=== PATIENT | female | born 1965 | race African-American/Black ===

== ENCOUNTER 2016-07-25 22:28 | Emergency (ER) | payer MEDICAID ==
[2012-11-01 01:45] VITALS: BMI 40.1
== END 2016-07-25 23:45 | disposition home or self-care (01) ==
LOC: D.ER 22:28
DX: G50.0 Trigeminal neuralgia (principal); I10 Essential (primary) hypertension; J45.909 Unspecified asthma, uncomplicated; E11.9 Type 2 diabetes mellitus without complications; M79.7 Fibromyalgia; K21.9 Gastro-esophageal reflux disease without esophagitis; M32.9 Systemic lupus erythematosus, unspecified; M06.9 Rheumatoid arthritis, unspecified

== ENCOUNTER 2017-04-15 12:47 | Emergency (ER) | payer MEDICAID ==
[2012-11-01 01:45] VITALS: BMI 40.1
== END 2017-04-15 14:25 | disposition home or self-care (01) ==
LOC: D.ER 12:47
DX: B37.2 Candidiasis of skin and nail (principal); M79.605 Pain in left leg; K64.8 Other hemorrhoids; I10 Essential (primary) hypertension; J45.909 Unspecified asthma, uncomplicated; K21.9 Gastro-esophageal reflux disease without esophagitis; M32.9 Systemic lupus erythematosus, unspecified

== ENCOUNTER 2017-04-18 22:13 | Emergency (ER) | payer MEDICAID ==
[2012-11-01 01:45] VITALS: BMI 40.1
[2017-04-19 00:29] LABS: APPEARANCE CLEAR (CLEAR); BILIRUBIN NEGATIVE (NEGATIVE); COLOR YELLOW (YELLOW); GLUCOSE NEGATIVE (NEGATIVE); KETONE NEGATIVE (NEGATIVE); NITRITE NEGATIVE (NEGATIVE); PROTEIN TRACE mg/dL (NEGATIVE); UROBILINOGEN NORMAL (NORMAL)
[2017-04-19 00:30] LABS: BACTERIA FEW /hpf (NONE SEEN); EPITHELIAL CELLS 0-5 /hpf (0-5); RED CELLS - URINE 0-5 /hpf (0-5); WHITE CELLS - URINE 0-5 /hpf (0-5)
[2017-04-19 00:36] LABS: HEMATOCRIT 39.2 % (36.0-48.0); HEMOGLOBIN 11.5 g/dL (12-16); MCHC 29.3 g/dL (31.0-37.0); MCV 66.6 fL (80.0-100.0); MEAN PLATELET VOLUME 9.6 fL (7.4-10.4); NEUTROPHILS 74.5 % (40-80); PLATELET COUNT 375 10x3/uL (130-400); RBC 5.89 10x6/uL (4.00-5.40); WBC 12.4 10x3/uL (4.8-10.8)
[2017-04-19 00:39] LABS: MCH 19.5 pg (26.0-34.0)
[2017-04-19 00:56] LABS: ALBUMIN 3.3 g/dL (3.4-5.0); ANION GAP 11.4 mmol/L (8-16); BILIRUBIN - TOTAL 0.4 mg/dL (0.2-1.3); CALCIUM 9.7 mg/dL (8.5-10.1); CARBON DIOXIDE 27.4 mmol/L (21.0-32.0); POTASSIUM - SERUM 3.8 mmol/L (3.5-5.1); PROTEIN - SERUM 8.3 g/dL (6.4-8.2)
== END 2017-04-19 04:06 | disposition home or self-care (01) ==
LOC: D.ER 22:13
PROVIDERS: Emergency Medicine
DX: R10.9 Unspecified abdominal pain (principal); E11.9 Type 2 diabetes mellitus without complications; K21.9 Gastro-esophageal reflux disease without esophagitis; M32.9 Systemic lupus erythematosus, unspecified; M06.9 Rheumatoid arthritis, unspecified

== ENCOUNTER → 2017-12-19 10:44 | Outpatient (CLI) | payer MEDICAID ==
[2012-11-01 01:45] VITALS: BMI 40.1
== END | disposition home or self-care (01) ==
LOC: D.NM 10:44
DX: I20.0 Unstable angina (principal)

== ENCOUNTER 2018-01-28 21:15 | Emergency (ER) | payer MEDICAID ==
[~2018-01-28] VITALS: Ht 160 cm; Wt 100.2 kg
[2018-01-28 21:32] VITALS: BP 174/83; Ht 160 cm; Wt 100.2 kg
== END 2018-01-28 23:53 | disposition left against medical advice (07) ==
LOC: D.ER 21:15
DX: H53.19 Other subjective visual disturbances (principal)

== ENCOUNTER 2018-07-10 08:25 | Emergency (ER) | payer MEDICAID ==
[~2018-07-10] VITALS: Ht 160 cm; Wt 96.8 kg
[2018-07-10 08:30] VITALS: Ht 160 cm; Wt 96.8 kg
[2018-07-10 08:53] LABS: HEMATOCRIT 34.4 % (36.0-48.0); HEMOGLOBIN 10.8 g/dL (12-16); MCH 20.9 pg (26.0-34.0); MCHC 31.4 g/dL (31.0-37.0); MCV 66.5 fL (80.0-100.0); MEAN PLATELET VOLUME 9.8 fL (7.4-10.4); RBC 5.17 10x6/uL (4.00-5.40); RDW 17.9 % (11.5-14.5); WBC 6.6 10x3/uL (4.8-10.8)
[2018-07-10 08:58] LABS: PLATELET COUNT 238 10x3/uL (130-400)
[2018-07-10 09:08] LABS: ALBUMIN 2.9 g/dL (3.4-5.0); ALKALINE PHOSPHATASE 85 U/L (46-116); ALT (SGPT) 13 U/L (10-68); BILIRUBIN - TOTAL 0.48 mg/dL (0.2-1.3); CALC OSMOLALITY 276 mosm/kg (275-300); CALCIUM 8.7 mg/dL (8.5-10.1); CHLORIDE - SERUM 105 mmol/L (98-107); CREATININE - SERUM 1.3 mg/dL (0.6-1.3); GLUCOSE 84 mg/dL (74-106); POTASSIUM - SERUM 3.4 mmol/L (3.5-5.1); PROTEIN - SERUM 7.9 g/dL (6.4-8.2); SODIUM 139 mmol/L (136-145); UREA NITROGEN 13 mg/dL (7-18); eGFR NON AFRICAN AMERICAN 46 mL/min (90-120)
[2018-07-10 09:20] LABS: CKMB 0.1 U/L (0.0-3.6); CREATINE KINASE 80 UL (21-215); PRO BNP 122 pg/mL (0-125); TROPONIN-I < 0.017 ng/mL (0.000-0.060)
[2018-07-10 09:39] LABS: LYMPHOCYTES 16 % (15-50); MONOCYTES 7 % (2-11); NEUTROPHILS 73 % (40-80); PLATELET ESTIMATE NORMAL
[2018-07-10 10:25] LABS: APPEARANCE HAZY (CLEAR); BILIRUBIN NEGATIVE (NEGATIVE); COLOR YELLOW (YELLOW); GLUCOSE NEGATIVE (NEGATIVE); KETONE NEGATIVE (NEGATIVE); NITRITE NEGATIVE (NEGATIVE); PROTEIN TRACE mg/dL (NEGATIVE); UROBILINOGEN NORMAL (NORMAL)
[2018-07-10 10:26] LABS: BACTERIA MANY /hpf (NONE SEEN); EPITHELIAL CELLS 0-5 /hpf (0-5); MUCUS <1+ /lpf (NONE SEEN); RED CELLS - URINE RARE /hpf (0-5); WHITE CELLS - URINE 0-5 /hpf (0-5)
[2018-07-10] MEDS ORDERED: MEDROL DOSE PACK4 MG PO (10:38)
[2018-07-10 11:22] VITALS: BP 154/72
== END 2018-07-10 11:22 | disposition home or self-care (01) ==
LOC: D.ER 08:25
PROVIDERS: Emergency Medicine
DX: M32.9 Systemic lupus erythematosus, unspecified (principal); M54.16 Radiculopathy, lumbar region; Z86.73 Personal history of transient ischemic attack (TIA), and cerebral infarction without residual deficits; E11.9 Type 2 diabetes mellitus without complications; I10 Essential (primary) hypertension; J44.9 Chronic obstructive pulmonary disease, unspecified; Z85.520 Personal history of malignant carcinoid tumor of kidney

== ENCOUNTER 2019-03-07 20:00 | Emergency (ER) | payer MEDICAID ==
[~2019-03-07] VITALS: Ht 160 cm; Wt 101.8 kg
[~2019-03-07 20:00] MED LIST: MEDROL DOSE PACK4 MG PO
[2019-03-07 20:30] VITALS: BP 172/79; Ht 160 cm; Wt 101.8 kg
[2019-03-07] MEDS ORDERED: BENICAR40 MG PO (20:34)
[2019-03-07] MEDS ORDERED: KLONOPIN1 MG PO (20:34)
[2019-03-07] MEDS ORDERED: CATAPRES0.1 MG PO (20:35)
[2019-03-07] MEDS ORDERED: NEURONTIN600 MG PO (20:35)
[2019-03-07] MEDS ORDERED: LANOXIN IN0.5 MG/2 M IV (20:35)
[2019-03-07] MEDS ORDERED: HYDROCHLOROTHIA25 MG PO (20:35)
[2019-03-07] MEDS ORDERED: NEXIUM20 MG PO (20:35)
[2019-03-07] MEDS ORDERED: FLUTICASONE PRO16 GM NASAL (20:35)
[2019-03-07] MEDS ORDERED: XARELTO15 MG PO (20:36)
[2019-03-07] MEDS ORDERED: SORINE80 MG PO (20:36)
[2019-03-07] MEDS ORDERED: ED-SPAZ0.125 MG PO (20:36)
[2019-03-07 22:26] LABS: BASOPHILS 0.2 % (0-2); EOSINOPHILS 1.6 % (0-7); HEMATOCRIT 36.4 % (36.0-48.0); HEMOGLOBIN 11.8 g/dL (12-16); IMMATURE GRANULOCYTES 0.4 % (0-5); LYMPHOCYTES 23.5 % (15-50); MCH 21.8 pg (26.0-34.0); MCHC 32.4 g/dL (31.0-37.0); MCV 67.2 fL (80.0-100.0); MEAN PLATELET VOLUME 9.6 fL (7.4-10.4); MONOCYTES 6.4 % (2-11); NEUTROPHILS 67.9 % (40-80); RBC 5.42 10x6/uL (4.00-5.40); RDW 18.5 % (11.5-14.5)
[2019-03-07 22:29] LABS: INR 0.97 (0.85-1.17); PROTIME 12.4 SECONDS (11.6-15.0)
[2019-03-07 22:34] LABS: PLATELET COUNT 367 10x3/uL (130-400)
[2019-03-07 22:35] LABS: HCG SERUM NEGATIVE (NEGATIVE)
[2019-03-07 22:36] LABS: ALBUMIN 3.4 g/dL (3.4-5.0); ANION GAP 8.9 mmol/L (8-16); BILIRUBIN - TOTAL 0.38 mg/dL (0.2-1.3); CALCIUM 9.6 mg/dL (8.5-10.1); CARBON DIOXIDE 30.7 mmol/L (21.0-32.0); CREATININE - SERUM 0.9 mg/dL (0.6-1.3); POTASSIUM - SERUM 3.6 mmol/L (3.5-5.1); PROTEIN - SERUM 8.6 g/dL (6.4-8.2)
[2019-03-07 22:41] LABS: APPEARANCE CLEAR (CLEAR); BILIRUBIN NEGATIVE (NEGATIVE); COLOR YELLOW (YELLOW); GLUCOSE NEGATIVE (NEGATIVE); KETONE NEGATIVE (NEGATIVE); NITRITE POSITIVE (NEGATIVE); PROTEIN NEGATIVE (NEGATIVE); UROBILINOGEN NORMAL (NORMAL)
[2019-03-07 22:43] LABS: BACTERIA MANY /hpf (NEGATIVE); EPITHELIAL CELLS 0-5 /hpf (0-5); RED CELLS - URINE OCC /hpf (0-5)
[2019-03-08] MEDS ORDERED: ZANAFLEX4 MG PO (00:16)
[2019-03-08] MEDS ORDERED: TALWIN NX1 TAB PO (00:16)
[2019-03-09] MEDS ORDERED: MACROBID100 MG PO (21:40)
== END 2019-03-08 01:12 | disposition home or self-care (01) ==
LOC: D.ER 20:00
PROVIDERS: Family Medicine
DX: S16.1XXA Strain of muscle, fascia and tendon at neck level, initial encounter (principal); V49.49XA Driver injured in collision with other motor vehicles in traffic accident, initial encounter; E11.9 Type 2 diabetes mellitus without complications; I10 Essential (primary) hypertension; J44.9 Chronic obstructive pulmonary disease, unspecified; K21.9 Gastro-esophageal reflux disease without esophagitis

== ENCOUNTER 2019-03-09 20:34 | Emergency (ER) | payer MEDICAID ==
[~2019-03-09] VITALS: Ht 160 cm; Wt 102.3 kg
[~2019-03-09 20:34] MED LIST changes: +BENICAR40 MG PO; +CATAPRES0.1 MG PO; +ED-SPAZ0.125 MG PO; +FLUTICASONE PRO16 GM NASAL; +HYDROCHLOROTHIA25 MG PO; +KLONOPIN1 MG PO; +LANOXIN IN0.5 MG/2 M IV; +NEURONTIN600 MG PO; +NEXIUM20 MG PO; +SORINE80 MG PO; +TALWIN NX1 TAB PO; +XARELTO15 MG PO; +ZANAFLEX4 MG PO
[2019-03-09 20:51] VITALS: Ht 160 cm; Wt 102.3 kg
[2019-03-09] MEDS ORDERED: MACROBID100 MG PO (21:40)
[2019-03-09 22:16] VITALS: BP 153/87
== END 2019-03-09 22:17 | disposition home or self-care (01) ==
LOC: D.ER 20:34
DX: S16.1XXA Strain of muscle, fascia and tendon at neck level, initial encounter (principal); S13.4XXA Sprain of ligaments of cervical spine, initial encounter; V89.2XXA Person injured in unspecified motor-vehicle accident, traffic, initial encounter

== ENCOUNTER 2019-03-12 12:06 | Emergency (ER) | payer MEDICAID ==
[~2019-03-12] VITALS: Ht 160 cm; Wt 97.3 kg
[~2019-03-12 12:06] MED LIST changes: +MACROBID100 MG PO
[2019-03-12 12:52] VITALS: Ht 160 cm; Wt 97.3 kg
[2019-03-12 15:45] VITALS: BP 138/77
== END 2019-03-12 15:45 | disposition home or self-care (01) ==
LOC: D.ER 12:06
DX: S29.012A Strain of muscle and tendon of back wall of thorax, initial encounter (principal); V89.2XXA Person injured in unspecified motor-vehicle accident, traffic, initial encounter; I10 Essential (primary) hypertension; M32.9 Systemic lupus erythematosus, unspecified

== ENCOUNTER → 2019-03-13 13:33 | Outpatient (CLI) | payer MEDICAID ==
[2019-03-12 12:52] VITALS: BMI 37.9
== END | disposition home or self-care (01) ==
LOC: D.HCCECHO 13:00
PROVIDERS: ATTEND Internal Medicine Cardiovascular Disease
DX: I10 Essential (primary) hypertension (principal)

== ENCOUNTER 2019-05-04 13:26 | Emergency (ER) | payer MEDICAID ==
[~2019-05-04] VITALS: Ht 160 cm; Wt 104.5 kg
[2019-05-04 13:34] VITALS: Ht 160 cm; Wt 104.5 kg
[2019-05-04 15:55] LABS: BASOPHILS 0.2 % (0-2); EOSINOPHILS 1.1 % (0-7); HEMATOCRIT 36.9 % (36.0-48.0); HEMOGLOBIN 11.6 g/dL (12-16); IMMATURE GRANULOCYTES 0.3 % (0-5); LYMPHOCYTES 20.9 % (15-50); MCH 21.7 pg (26.0-34.0); MCHC 31.4 g/dL (31.0-37.0); MEAN PLATELET VOLUME 9.4 fL (7.4-10.4); MONOCYTES 5.1 % (2-11); NEUTROPHILS 72.4 % (40-80); PLATELET COUNT 317 10x3/uL (130-400); RBC 5.35 10x6/uL (4.00-5.40); RDW 17.8 % (11.5-14.5)
[2019-05-04 15:58] LABS: APPEARANCE CLEAR (CLEAR); BILIRUBIN NEGATIVE (NEGATIVE); COLOR YELLOW (YELLOW); GLUCOSE NEGATIVE (NEGATIVE); KETONE NEGATIVE (NEGATIVE); NITRITE POSITIVE (NEGATIVE); PROTEIN NEGATIVE (NEGATIVE); SPECIFIC GRAVITY 1.025 (1.005-1.020); UROBILINOGEN NORMAL (NORMAL)
[2019-05-04 16:01] LABS: ANION GAP 9.6 mmol/L (8-16); CALCIUM 9.1 mg/dL (8.5-10.1); CARBON DIOXIDE 29.8 mmol/L (21.0-32.0); CREATININE - SERUM 0.9 mg/dL (0.6-1.3); POTASSIUM - SERUM 3.4 mmol/L (3.5-5.1)
[2019-05-04 16:02] LABS: INR 1.02 (0.85-1.17); PROTIME 12.9 SECONDS (11.6-15.0)
[2019-05-04 16:03] LABS: APTT 27.8 SECONDS (22.8-39.4)
[2019-05-04 16:04] LABS: D-DIMER-QUANTITATIVE 0.35 ug/mLFEU (0.20-0.54)
[2019-05-04 16:08] LABS: BACTERIA MANY /hpf (NEGATIVE); EPITHELIAL CELLS NSEEN /hpf (0-5); RED CELLS - URINE NONE SEEN /hpf (0-5); WHITE CELLS - URINE 0-5 /hpf (NEGATIVE)
[2019-05-04 16:13] LABS: ALBUMIN 3.2 g/dL (3.4-5.0); BILIRUBIN - TOTAL 0.36 mg/dL (0.2-1.3); PROTEIN - SERUM 8.4 g/dL (6.4-8.2)
[2019-05-04] MEDS ORDERED: ULTRAM50 MG PO (19:28)
[2019-05-04 20:09] VITALS: BP 132/75
== END 2019-05-04 20:09 | disposition home or self-care (01) ==
LOC: D.ER 13:26
PROVIDERS: Family Medicine
DX: S46.001A Unspecified injury of muscle(s) and tendon(s) of the rotator cuff of right shoulder, initial encounter (principal); V49.9XXA Car occupant (driver) (passenger) injured in unspecified traffic accident, initial encounter; I10 Essential (primary) hypertension; M19.90 Unspecified osteoarthritis, unspecified site; M32.9 Systemic lupus erythematosus, unspecified

== ENCOUNTER 2019-05-16 00:02 | Emergency (ER) | payer MEDICAID ==
[~2019-05-16] VITALS: Ht 160 cm; Wt 101.4 kg
[~2019-05-16 00:02] MED LIST changes: +ULTRAM50 MG PO
[2019-05-16 00:07] VITALS: Ht 160 cm; Wt 101.4 kg
[2019-05-16] MEDS ORDERED: HYDROCODON-ACE1 EAC7 PO (01:30)
[2019-05-16 02:02] VITALS: BP 175/82
== END 2019-05-16 02:03 | disposition home or self-care (01) ==
LOC: D.ER 00:02
DX: M25.552 Pain in left hip (principal); M79.602 Pain in left arm; M54.2 Cervicalgia; V89.2XXA Person injured in unspecified motor-vehicle accident, traffic, initial encounter; Y93.9 Activity, unspecified; Y92.9 Unspecified place or not applicable; I10 Essential (primary) hypertension; Z86.73 Personal history of transient ischemic attack (TIA), and cerebral infarction without residual deficits

== ENCOUNTER 2019-11-12 12:36 | Emergency (ER) | payer MEDICAID ==
[~2019-11-12] VITALS: Ht 160 cm; Wt 101.4 kg
[~2019-11-12 12:36] MED LIST changes: +HYDROCODON-ACE1 EAC7 PO
[2019-11-12 12:50] VITALS: Ht 160 cm; Wt 101.4 kg
[2019-11-12 14:24] LABS: BASOPHILS 0.2 % (0-2); EOSINOPHILS 0.3 % (0-7); HEMATOCRIT 36.8 % (36.0-48.0); HEMOGLOBIN 11.3 g/dL (12-16); IMMATURE GRANULOCYTES 0.2 % (0-5); LYMPHOCYTES 17.6 % (15-50); MCHC 30.7 g/dL (31.0-37.0); MCV 68.3 fL (80.0-100.0); MEAN PLATELET VOLUME 9.5 fL (7.4-10.4); MONOCYTES 5.5 % (2-11); NEUTROPHILS 76.2 % (40-80); PLATELET COUNT 341 10x3/uL (130-400); RBC 5.39 10x6/uL (4.00-5.40); RDW 17.7 % (11.5-14.5); WBC 12.6 10x3/uL (4.8-10.8)
[2019-11-12 14:28] LABS: CALC OSMOLALITY 279 mosm/kg (275-300); CALCIUM 9.7 mg/dL (8.5-10.1); CARBON DIOXIDE 28.5 mmol/L (21.0-32.0); CHLORIDE - SERUM 107 mmol/L (98-107); GLUCOSE 104 mg/dL (74-106); SODIUM 141 mmol/L (136-145); UREA NITROGEN 11 mg/dL (7-18); eGFR NON AFRICAN AMERICAN 62 mL/min (90-120)
[2019-11-12 14:38] LABS: ALBUMIN 3.4 g/dL (3.4-5.0); ALKALINE PHOSPHATASE 121 U/L (30-120); ALT (SGPT) 12 U/L (10-68); AMYLASE - SERUM 43 U/L (25-115); BILIRUBIN - TOTAL 0.62 mg/dL (0.2-1.3); LIPASE 51 U/L (73-393); PROTEIN - SERUM 8.5 g/dL (6.4-8.2); TROPONIN-I < 0.017 ng/mL (0.000-0.060)
[2019-11-12 17:03] LABS: BILIRUBIN NEGATIVE (NEGATIVE); GLUCOSE NEGATIVE (NEGATIVE); KETONE NEGATIVE (NEGATIVE); NITRITE NEGATIVE (NEGATIVE); UROBILINOGEN NORMAL (NORMAL)
[2019-11-12] MEDS ORDERED: BENTYL 20 MG TA20 MG PO (18:46)
[2019-11-12] MEDS ORDERED: ZOFRAN ODT4 MG/UDTAB PO (18:46)
[2019-11-12 19:06] VITALS: BP 160/65
== END 2019-11-12 19:06 | disposition home or self-care (01) ==
LOC: D.ER 12:36
PROVIDERS: Family Medicine
DX: R10.9 Unspecified abdominal pain (principal); M54.9 Dorsalgia, unspecified; G89.29 Other chronic pain; R11.0 Nausea; Z86.73 Personal history of transient ischemic attack (TIA), and cerebral infarction without residual deficits; G62.9 Polyneuropathy, unspecified; E07.9 Disorder of thyroid, unspecified; I10 Essential (primary) hypertension; I25.2 Old myocardial infarction; J44.9 Chronic obstructive pulmonary disease, unspecified; K21.9 Gastro-esophageal reflux disease without esophagitis

== ENCOUNTER 2019-11-13 01:07 | Emergency (ER) | payer MEDICAID ==
[~2019-11-13] VITALS: Ht 160 cm; Wt 101.8 kg
[~2019-11-13 01:07] MED LIST changes: +BENTYL 20 MG TA20 MG PO; +ZOFRAN ODT4 MG/UDTAB PO
[2019-11-13 01:11] VITALS: Ht 160 cm; Wt 101.8 kg
[2019-11-13 02:08] VITALS: BP 126/67
== END 2019-11-13 02:09 | disposition home or self-care (01) ==
LOC: D.ER 01:07
DX: G89.29 Other chronic pain (principal); M54.5 Low back pain; R10.9 Unspecified abdominal pain; E07.9 Disorder of thyroid, unspecified; Z86.73 Personal history of transient ischemic attack (TIA), and cerebral infarction without residual deficits; G62.9 Polyneuropathy, unspecified; I10 Essential (primary) hypertension; I25.2 Old myocardial infarction; J44.9 Chronic obstructive pulmonary disease, unspecified; K21.9 Gastro-esophageal reflux disease without esophagitis

== ENCOUNTER → 2019-11-20 13:21 | Outpatient (CLI) | payer MEDICAID ==
[2019-11-13 01:11] VITALS: BMI 39.7
== END | disposition home or self-care (01) ==
LOC: D.US 13:00
PROVIDERS: ATTEND Internal Medicine Cardiovascular Disease
DX: G45.9 Transient cerebral ischemic attack, unspecified (principal)